=== PATIENT | female | born 1970 | race American Indian/Alaskan Native ===

== ENCOUNTER 2019-01-20 05:14 | Observation (INO) | payer MEDICAID ==
[~2019-01-20] VITALS: Ht 172.7 cm; Wt 127.3 kg
--- NOTE | 2019-01-20 05:22 | NUR ---
contacted poison control regarding the open ticket from [facility]. Poison control stated the patient should be medically monitored from the time of arrival at [facility] (2330 on 01/19/19) and for 12 hours after that. tachycardia, agitation and prolonged q-t interval are all indicators of ingestion.
[2019-01-20] MEDS ORDERED: magnesium 2GM in 50ml NS 50 ML IV ONE ×2 (05:30→16:30)
[2019-01-20 05:55] LABS: BASOPHILS % (AUTO) 0.4 % (0-1); EOSINOPHILS # (AUTO) 0.1 X10'3 (0-0.9); HEMATOCRIT 38.3 % (35.0-45.0); LYMPHOCYTES # (AUTO) 1.4 X10'3 (1.1-4.8); LYMPHOCYTES % (AUTO) 16.6 % (21-51); MEAN CORPUSCULAR HEMOGLOBIN 31.3 PG (27.0-31.0); MEAN CORPUSCULAR VOLUME 91.9 FL (78-98); MEAN PLATELET VOLUME 6.8 FL (7.4-10.4); MONOCYTES # (AUTO) 0.5 X10'3 (0-0.9); MONOCYTES % (AUTO) 6.1 % (2-12); NEUTROPHILS # (AUTO) 6.6 X10'3 (1.8-7.7); NEUTROPHILS % (AUTO) 75.9 % (42-75); PLATELET COUNT 259 X10'3 (140-440); RED BLOOD COUNT 4.17 X10'6 (4.20-5.60); RED CELL DISTRIBUTION WIDTH 13.6 % (11.5-14.5); WHITE BLOOD COUNT 8.7 X10'3 (4.5-11.0)
[2019-01-20] MEDS ORDERED: LORA0.5T PO (05:55)
[2019-01-20] MEDS ORDERED: ESCI5TAB PO (05:55)
[2019-01-20] MEDS ORDERED: HYDR12.5 PO (05:55)
[2019-01-20] MEDS ORDERED: BUPR150T8 PO (05:55)
[2019-01-20] MEDS ORDERED: LISI-600 PO (05:55)
[2019-01-20] MEDS ORDERED: METF500T20 PO (05:55)
[2019-01-20 06:07] LABS: URINE HCG NEGATIVE (NEG)
[2019-01-20 06:12] LABS: ALANINE AMINOTRANSFERASE 70 U/L (12-78); ALBUMIN 3.8 G/DL (3.4-5.0); ALBUMIN/GLOBULIN RATIO 1.2 (1.1-1.5); ALKALINE PHOSPHATASE 90 IU/L (46-116); ANION GAP 11 (8-16); ASPARTATE AMINO TRANSFERASE 29 U/L (10-37); BILIRUBIN,TOTAL 0.6 MG/DL (0.1-1.0); BLOOD UREA NITROGEN 8 MG/DL (7-18); BUN/CREATININE RATIO 13.3 (6.6-38.0); CALCIUM 7.7 MG/DL (8.5-10.1); CHLORIDE 107 MMOL/L (99-107); GLUCOSE 186 MG/DL (70-104); POTASSIUM 4.1 MMOL/L (3.5-5.1); SODIUM 140 MMOL/L (135-145); TOTAL CARBON DIOXIDE 21.9 MMOL/L (24-32); TOTAL PROTEIN 7.1 G/DL (6.4-8.2); URINE AMPHETAMINE SCREEN NEGATIVE (Neg); URINE BARBITUATE SCREEN NEGATIVE (Neg); URINE BENZODIAZEPINES SCREEN NEGATIVE (Neg); URINE CANNABINOID SCREEN NEGATIVE (Neg); URINE COCAINE SCREEN NEGATIVE (Neg); URINE METHADONE SCREEN NEGATIVE (Neg); URINE OPIATE SCREEN NEGATIVE (Neg); URINE PHENCYCLIDINE SCREEN NEGATIVE (Neg); eGFR > 90 ML/MIN
[2019-01-20 06:20] LABS: ETHANOL < 0.010 GM/DL (0.0-0.010)
[2019-01-20 06:21] LABS: ACETAMINOPHEN < 2.0 UG/ML (10-30)
[2019-01-20] MEDS ORDERED: glucagon, human recombinant 1mg kit SUBCUT PRN (06:45)
[2019-01-20] MEDS ORDERED: dextrose 50%-water 50ml dispensing syringe IV PRN ×2 (06:45)
[2019-01-20] MEDS ORDERED: potassium Cl 20 mEq SR tablet PO PRN ×2 (06:45)
[2019-01-20] MEDS ORDERED: magnesium 2GM in 50ml NS 50 ML IV PRN (06:45)
[2019-01-20] MEDS ORDERED: dextrose ORAL solution 15 GM/59 ML bottle PO PRN ×2 (06:45)
[2019-01-20] MEDS ORDERED: insulin Lispro (HumaLOG) vial - multi-dose SQ SCH (06:45)
[2019-01-20] MEDS ORDERED: magnesium 4gm in 100ml NS 100 ML IV PRN (06:45)
[2019-01-20] MEDS ORDERED: magnesium Cl slow-release 64mg tablet PO PRN (06:45)
[2019-01-20] MEDS ORDERED: potassium CL 10mEq/100ml bag 100 ML IV PRN ×2 (06:45)
[2019-01-20] MEDS ORDERED: acetaminophen 325mg tablet PO PRN (06:45)
[2019-01-20] MEDS ORDERED: MESSAGE TO PHARMACY PO ONE (06:45)
[2019-01-20] MEDS: normal saline 1000ml 1,000 ML IV SCH ×3 (07:33→21:03)
[2019-01-20] MEDS ORDERED: calcium chloride 100 MG/1 ML inj IV ONE ×2 (07:45→16:30)
[2019-01-20] MEDS ORDERED: calcium chloride inj. 1,000 MG in normal saline 100ml IV soln 90 ML IV ONE ×2 (07:50→16:45)
[2019-01-20] MEDS ORDERED: lisinopril 20mg tablet PO SCH (08:00)
[2019-01-20] MEDS ORDERED: metFORMIN 500mg tablet PO SCH (08:00)
[2019-01-20] MEDS: HYDROchlorothiazide 12.5mg capsule PO SCH (08:00)
[2019-01-20] MEDS: K and/or MAG REPLACEMENT MC SCH (08:00)
--- NOTE | 2019-01-20 08:52 | NUR ---
spoke with poison control again. Went over her labs, etc. They recommend just keeping an eye on her electrolytes, keeping them WNL, especially the Mg, K and Ca.
--- NOTE | 2019-01-20 09:08 | NUR ---
Received report from LESLI Correa. Awaiting patient arrival.
--- NOTE | 2019-01-20 09:23 | NUR ---
SPOKE WITH DR MORILLO, HE INSTRUCTED ME TO HOLD THE AM DOSE OF HCTZ BUT GIVE THE 10 MG DOSE OF LISINOPRIL, WHICH I DID. CALLED REPORT TO FLOOR, ACCOMPANIED TO SURGICAL ROOM 356B BY HER , WHO HAS POSSESSION OF ALL HER BELONGINGS.
[2019-01-20 09:40] VITALS: BP 135/69
--- NOTE | 2019-01-20 09:40 | NUR ---
Patient arrived to the floor with Dread at bedside. No complaints. VSS. IVF infusing.
[2019-01-20 11:15] VITALS: BP 137/77
[2019-01-20] MEDS ORDERED: ROSU5TAB PO (11:48)
[2019-01-20 14:51] LABS: ALANINE AMINOTRANSFERASE 79 U/L (12-78); ALBUMIN 3.8 G/DL (3.4-5.0); ALBUMIN/GLOBULIN RATIO 1.1 (1.1-1.5); ALKALINE PHOSPHATASE 88 IU/L (46-116); ANION GAP 10 (8-16); ASPARTATE AMINO TRANSFERASE 35 U/L (10-37); BILIRUBIN,TOTAL 1.1 MG/DL (0.1-1.0); BLOOD UREA NITROGEN 5 MG/DL (7-18); BUN/CREATININE RATIO 9.6 (6.6-38.0); CALCIUM 8.7 MG/DL (8.5-10.1); CHLORIDE 103 MMOL/L (99-107); CREATININE 0.52 MG/DL (0.40-0.90); GLUCOSE 105 MG/DL (70-104); POTASSIUM 4.1 MMOL/L (3.5-5.1); SODIUM 139 MMOL/L (135-145); TOTAL CARBON DIOXIDE 25.8 MMOL/L (24-32); TOTAL PROTEIN 7.4 G/DL (6.4-8.2); eGFR > 90 ML/MIN
[2019-01-20] MEDS ORDERED: CALCIUM GLUCONATE 1 GM in NORMAL SALINE 100ml IV.SOLN IV ONE (16:40)
--- NOTE | 2019-01-20 18:29 | NUR ---
Problems reprioritized. Patient report given, questions answered & plan of care reviewed with DIVYA Ramos RN.
--- NOTE | 2019-01-20 18:41 | NUR ---
Patient in room [facility]. I have received report from LESLI KAUR and had the opportunity to ask questions and assume patient care. Addendum: 01/20/19 at 1842 by Nely Arroyo RN Amended: Links added.
[2019-01-20 20:00] VITALS: BP 152/72
[2019-01-20] MEDS ORDERED: insulin glargine (Lantus) pen - multi-dose SQ SCH (21:00)
--- NOTE | 2019-01-20 23:04 | NUR ---
Pt had her EKG done for tonight and spoke with Posion control with the results and no new order made at this time.
[2019-01-21] VITALS: BP 137/76
[2019-01-21 06:28] LABS: BASOPHILS % (AUTO) 0.6 % (0-1); EOSINOPHILS # (AUTO) 0.1 X10'3 (0-0.9); HEMATOCRIT 37.8 % (35.0-45.0); HEMOGLOBIN 12.8 g/dl (12.0-16.0); MEAN CORPUSCULAR HEMOGLOBIN 31.4 PG (27.0-31.0); MEAN CORPUSCULAR VOLUME 92.4 FL (78-98); MEAN PLATELET VOLUME 6.8 FL (7.4-10.4); MONOCYTES # (AUTO) 0.6 X10'3 (0-0.9); NEUTROPHILS # (AUTO) 4.4 X10'3 (1.8-7.7); NEUTROPHILS % (AUTO) 61.4 % (42-75); PLATELET COUNT 239 X10'3 (140-440); RED BLOOD COUNT 4.09 X10'6 (4.20-5.60); RED CELL DISTRIBUTION WIDTH 13.4 % (11.5-14.5); WHITE BLOOD COUNT 7.2 X10'3 (4.5-11.0)
[2019-01-21 06:30] LABS: ALBUMIN 3.3 G/DL (3.4-5.0); ANION GAP 9 (8-16); BLOOD UREA NITROGEN 7 MG/DL (7-18); CALCIUM 8.6 MG/DL (8.5-10.1); CHLORIDE 107 MMOL/L (99-107); GLUCOSE 121 MG/DL (70-104); MAGNESIUM 1.9 MG/DL (1.5-2.4); POTASSIUM 3.9 MMOL/L (3.5-5.1); SODIUM 141 MMOL/L (135-145); TOTAL CARBON DIOXIDE 25.1 MMOL/L (24-32); eGFR > 90 ML/MIN
--- NOTE | 2019-01-21 06:38 | NUR ---
Problems reprioritized. Patient report given, questions answered & plan of care reviewed with LESLI Devlin. Addendum: 01/21/19 at 0638 by Nely Arroyo RN Amended: Links added.
[2019-01-21 07:00] VITALS: BP 126/85
--- NOTE | 2019-01-21 07:22 | NUR ---
Patient in room [facility]. I have received report from Kiya Ramos RN and had the opportunity to ask questions and assume patient care.
[2019-01-21] MEDS: K and/or MAG REPLACEMENT MC SCH (08:00)
[2019-01-21] MEDS ORDERED: lisinopril 10 MG tablet PO SCH (08:00)
[2019-01-21] MEDS: HYDROchlorothiazide 12.5mg capsule PO SCH (08:18)
[2019-01-21] MEDS: normal saline 1000ml 1,000 ML IV SCH (08:21)
[2019-01-21 11:00] VITALS: BP 148/54
--- NOTE | 2019-01-21 14:30 | NUR ---
patient seen by Dr Cisse, is for discharge . All instructions given to patient, see dialysis social worker note also. Patients present. Two PIV removed intact. patient appears stable for DC. Discharged home via private car to home. 1340hrs.
== END 2019-01-21 13:30 | disposition home or self-care (01) ==
LOC: ER 05:15 → SUR 3N 09:25 → CMPBEDREQ 15:16
PROVIDERS: ADMIT Internal Medicine; ATTEND Internal Medicine
DX: T50.902A Poisoning by unspecified drugs, medicaments and biological substances, intentional self-harm, initial encounter (principal); E11.9 Type 2 diabetes mellitus without complications; I10 Essential (primary) hypertension; F32.9 Major depressive disorder, single episode, unspecified; F41.9 Anxiety disorder, unspecified; E87.2 Acidosis; Z79.84 Long term (current) use of oral hypoglycemic drugs; Z79.899 Other long term (current) drug therapy
CPT/HCPCS: 36415; 80048; 80053; 80178; 80305; 80320; 80329; 81025; 82948; 83036; 83735; 84443; 85025; 87081; 93005; 96365; 96366; 96367; 97116; 97161; 97530; 99284; G0378; J1815; J3475; J7030; J0610